=== PATIENT | male | born 1955 | race Caucasian/White ===

== ENCOUNTER 2025-05-17 12:12 | Emergency (ER) | payer OTHER ==
[~2025-05-17] VITALS: Ht 170.2 cm; Wt 66.7 kg
[2025-05-17 12:17] VITALS: TEMP 97.6
[2025-05-17] MEDS: IV NS 0.9% 1,000 ML BAG IV ONE (12:39)
[2025-05-17 12:56] LABS: PLATELET COUNT (AUTO) 235 K/uL (150-450); RED BLOOD CELL COUNT(AUTO) 4.79 MIL/uL (4.5-6.0); RED CELL DISTRIBUTION WIDTH 13.8 % (11.5-15.0); WHITE BLOOD COUNT (AUTO) 11.1 K/uL (4.3-11.0)
[2025-05-17 13:07] LABS: CALCIUM, SERUM 9.1 mg/dL (8.5-10.1); CREATININE 1.4 mg/dL (0.6-1.3); SODIUM SERUM 134 mmol/L (136-145); UREA NITROGEN, BLOOD 23 mg/dL (7-18)
[2025-05-17 13:16] LABS: LACTIC ACID 1.4 mmol/L (0.4-2.0)
[2025-05-17] MEDS ORDERED: SODIUM BICARBONATE SYR 50 MEQ/50 ML DISP.SYRIN ONE (14:10)
[2025-05-17] MEDS ORDERED: SODIUM ZIRCONIUM CYCLOSILICATE 10 GM POWD.PACK ONE (14:12)
[2025-05-17] MEDS: SODIUM ZIRCONIUM CYCLOSILICATE 10 GM POWD.PACK PO ONE (14:12)
[2025-05-17] MEDS: SODIUM BICARBONATE SYR 50 MEQ/50 ML DISP.SYRIN IV ONE (14:15)
[2025-05-17] MEDS: Calcium Gluconate 1GM/10ML 4.65 MEQ in IV NS 0.9% 100 ML IV ONE (14:40)
[2025-05-17 15:08] LABS: APPEARANCE,URINE CLEAR (CLEAR); BLOOD, URINE NEGATIVE Ery/uL (NEGATIVE); LEUKOCYTE ESTERASE ,URINE NEGATIVE (NEGATIVE); NITRITE, URINE NEGATIVE (NEGATIVE); UGLUCOSE NEGATIVE (NEGATIVE)
[2025-05-17 18:30] VITALS: BP 134/64; O2SAT 99
== END 2025-05-18 00:32 | disposition short-term general hospital (02) ==
LOC: EDBD 12:15 → ER 12:15
DX: E87.5 Hyperkalemia (principal); R00.1 Bradycardia, unspecified; R53.1 Weakness; N40.0 Benign prostatic hyperplasia without lower urinary tract symptoms
CPT/HCPCS: 99291; 96365; 96361; 96375; 93005; 85025; 80048; 87040 ×2; 83605; 81003; 36415; 84484 ×2; J0612; J3490; J7030 ×2